=== PATIENT | female | born 1985 | race Caucasian/White ===

== ENCOUNTER 2019-07-28 21:01 | Inpatient (IN) | payer OTHER ==
[~2019-07-28] VITALS: Ht 167.6 cm; Wt 144.5 kg
--- NOTE | 2019-07-28 21:14 | NUR ---
Pt not responsive perrla not present, pt hypoxic on 83% ra. @mg narcan given per protcol. Pt placed on all monitors and call light in reach.
[2019-07-28] MEDS ORDERED: ONDANSETRON ODT 4 MG PO ONE (21:30)
[2019-07-28] MEDS ORDERED: KETOROLAC 30 MG/1 ML IM ONE (21:30)
[2019-07-28] MEDS ORDERED: PLEASE ENTER ALLERGIES MC SCH ×2 (21:30)
--- NOTE | 2019-07-28 21:30 | NUR ---
PT PRESENTS TO ED PER [facility] FOR EVALUATION OF AMS. PT WAS AT THE [facility] TODAY WITH HER NIECE. NIECE WAS IN THE CAR WITH HER WHEN PT THEN BECAME UNRESPONSIVE. NIECE CALLED EMS. WHEN EMS ARRIVED PT HAS FULL BODY TREMULOUS MOVEMENTS AND WAS RESPONSIVE TO PAINFUL STIMULI ONLY AND 80% ON RA. 2MG VERSED GIVEN AND PT PLACED ON NRB. PT 83% ON RA AND PLACED ON NRB HERE IN ED. NARCAN GIVEN WITHOUT CHANGES.
--- NOTE | 2019-07-28 21:41 | NUR ---
PT TO CT.
[2019-07-28 21:42] LABS: BASOPHILS # (AUTO) 0.03 x10^3/uL (0-0.1); BASOPHILS % (AUTO) 0 % (0-1); EOSINOPHILS # (AUTO) 0.14 x10^3/uL (0-0.4); EOSINOPHILS % (AUTO) 2 % (1-7); LYMPHOCYTES # (AUTO) 2.55 x10^3/uL (1-3.4); LYMPHOCYTES % (AUTO) 30 % (22-44); MD NO; MEAN CORPUSCULAR HEMOGLOBIN 29.6 pg (27.0-34.8); MEAN CORPUSCULAR HGB CONC 33.2 g/dL (32.4-35.8); MEAN CORPUSCULAR VOLUME 89.1 fL (80-100); MEAN PLATELET VOLUME 7.6 fL (7.4-10.4); MONOCYTES # (AUTO) 0.47 x10^3/uL (0.2-0.8); MONOCYTES % (AUTO) 6 % (2-9); NEUTROPHILS # (AUTO) 5.23 x10^3/uL (1.8-6.8); NEUTROPHILS % (AUTO) 62 % (42-75); PLATELET COUNT 266 x10^3/uL (130-400); RED BLOOD COUNT 4.08 x10^6/uL (3.82-5.3); RED CELL DISTRIBUTION WIDTH 14.3 % (9.6-15.2)
[2019-07-28 21:48] LABS: ANION GAP 7 mmol/L (5-15); CALCIUM 8.1 mg/dL (8.5-10.1); CHLORIDE 108 mmol/L (98-107); SALICYLATE LEVEL 2.4 mg/dL (2.8-20.0)
[2019-07-28 21:54] LABS: ALANINE AMINOTRANSFERASE 14 U/L (12-78); ALKALINE PHOSPHATASE 107 U/L (45-117); BILIRUBIN,TOTAL 0.5 mg/dL (0.2-1.0); CREATININE 0.84 mg/dL (0.55-1.02); TOTAL PROTEIN 6.9 g/dL (6.4-8.2); TROPONIN I < 0.015 ng/mL (0.000-0.045)
[2019-07-28] MEDS ORDERED: AMPICILLIN/SULBACTAM 3 GM in SODIUM CHLORIDE 0.9% 100 ML IV ONE (22:30)
[2019-07-28 22:53] LABS: HCG UR SG 1.029 (1.003-1.030); MICROSCOPIC AUTO
[2019-07-28] MEDS ORDERED: NALOXONE 0.4 MG/ML, 1ML IVPush ONE (23:00)
[2019-07-28 23:03] LABS: AMPHETAMINE SCREEN, URINE Positive (Negative); BARBITURATE SCREEN, URINE Negative (Negative); BENZODIAZEPINE SCREEN, URINE Positive (Negative); CANNABINOID SCREEN, URINE Positive (Negative); COCAINE SCREEN, URINE Negative (Negative); METHADONE SCREEN, URINE Negative (Negative); OPIATE SCREEN, URINE Negative (Negative)
--- NOTE | 2019-07-28 23:09 | NUR ---
DRUG SUBSTANCE FOUND ON PT. KAIDEN RODARTE NOTIFIED AND CALLED SECURITY. SECURITY AT BEDSIDE AND GIVEN PT BELONGINGS. ADDITIONAL DRUG SUBSTANCE AND PIPES FOUND. SECURITY IN POSSESSION OF ALL OF THE ABOVE AND WILL CONFINSCATE. Addendum: 07/29/19 at 0031 by VIOLET drug substance was found in a pink jar that was given to pharmacy.
--- NOTE | 2019-07-28 23:21 | NUR ---
PT ALERT TO VERBAL AT THIS TIME. STATES THAT SHE TOOK TWO EDIBLES TODAY. DENIES OTHER DRUG USE.
[2019-07-28] MEDS: SODIUM CHLORIDE 0.9% 1,000 ML IV SCH (23:43)
--- NOTE | 2019-07-28 23:51 | NUR ---
PT RESTING AT THIS TIME. ALERT TO PERSON, PLACE AND SITUATION. 97% ON 3L NC.
[2019-07-29] MEDS ORDERED: ONDANSETRON ODT 4 MG PO PRN
[2019-07-29] MEDS ORDERED: PROMETHAZINE 25 MG/ML, 1ML IM PRN
[2019-07-29] MEDS ORDERED: DOCUSATE 100 MG CAPSULE PO PRN
[2019-07-29] MEDS ORDERED: POLYETHYLENE GLYCOL 17 GM PACKET PO PRN
[2019-07-29] MEDS ORDERED: hydrALAzine 20 MG/ML, 1ML IVPush PRN
[2019-07-29] MEDS ORDERED: LORazepam 2 MG/ML, 1ML IVPush PRN
[2019-07-29] MEDS ORDERED: ONDANSETRON 2MG/ML, 2ML IVPush PRN
[2019-07-29] MEDS ORDERED: ACETAMINOPHEN 325 MG TABLET PO PRN
[2019-07-29] MEDS ORDERED: BISACODYL 10 MG SUPP PR PRN
--- NOTE | 2019-07-29 00:27 | NUR ---
REPORT CALLED TO JOHNSON COONEY ON TELEMETRY. PT AWARE OF TRANSFER.
[2019-07-29 00:38] LABS: FREE T4 (FREE THYROXINE) 1.09 ng/dL (0.76-1.46)
[2019-07-29 01:14] VITALS: BP 115/68
[2019-07-29 01:50] VITALS: BP 115/68
[2019-07-29] MEDS: AMPICILLIN/SULBACTAM 3 GM in SODIUM CHLORIDE 0.9% 100 ML IV SCH ×2 (04:34→09:56)
[2019-07-29 06:56] VITALS: BP 136/82
[2019-07-29] MEDS: SODIUM CHLORIDE 0.9% 1,000 ML IV SCH (07:43)
[2019-07-29 11:51] VITALS: BP 111/71
== END 2019-07-29 15:08 | disposition left against medical advice (07) | DRG 917 ==
LOC: ED 22:58 → EDIP 07-29 00:57 → 4WST 07-29 01:07
PROVIDERS: ADMIT Internal Medicine; ATTEND Internal Medicine
PROC: 0T9B30Z Drainage of Bladder with Drainage Device, Percutaneous Approach (ICD-10-PCS; principal; 2019-07-28)
DX: T42.4X1A Poisoning by benzodiazepines, accidental (unintentional), initial encounter (principal); G92 Toxic encephalopathy; J69.0 Pneumonitis due to inhalation of food and vomit; J96.01 Acute respiratory failure with hypoxia; T40.7X1A Poisoning by cannabis (derivatives), accidental (unintentional), initial encounter; F31.9 Bipolar disorder, unspecified; F15.10 Other stimulant abuse, uncomplicated; F12.10 Cannabis abuse, uncomplicated; E87.6 Hypokalemia; Y92.89 Other specified places as the place of occurrence of the external cause; Z79.899 Other long term (current) drug therapy; Z53.29 Procedure and treatment not carried out because of patient's decision for other reasons
CPT/HCPCS: 36415; 36600; 70450; 71045; 80053; 80307; 81001; 81025; 82803; 83036; 83735; 83880; 84439; 84443; 84484; 85025; 87040; 87086; 93005; G0378; J0295; J2310; J7030